=== PATIENT | female | born 1985 | race African-American/Black ===

== ENCOUNTER 2019-06-04 03:41 | Emergency (ER) | payer OTHER ==
[~2019-06-04] VITALS: Ht 160 cm; Wt 59.0 kg
[~2019-06-04 03:41] MED LIST: FLUO10CA25 PO; RISO02 PO
[2019-06-04] MEDS ORDERED: LORAZEPAM 0.5MG TABLET PO ONE (04:15)
[2019-06-04 05:39] LABS: CLARITY URINE CLOUDY (CLEAR); COLOR URINE DARK YELLOW (YELLOW); KETONES URINE TRACE (NEGATIVE); LEUKOCYTE ESTERASE URINE 2+ (NEGATIVE); NITRITE URINE NEGATIVE (NEGATIVE); OCCULT BLOOD URINE 1+ (NEGATIVE); PH URINE 5.5 (4.5-8.0); PROTEIN URINE 2+ (NEGATIVE); SPECIFIC GRAVITY URINE 1.016 (1.005-1.030)
[2019-06-04] MEDS ORDERED: IBUPROFEN 600MG TABLET PO ONE (06:00)
[2019-06-04 06:01] VITALS: BP 139/91
== END 2019-06-04 06:05 | disposition home or self-care (01) ==
LOC: ER 05:30
DX: M79.10 Myalgia, unspecified site (principal); F10.10 Alcohol abuse, uncomplicated; N39.0 Urinary tract infection, site not specified; I25.2 Old myocardial infarction; Z79.899 Other long term (current) drug therapy; Y90.8 Blood alcohol level of 240 mg/100 ml or more
CPT/HCPCS: 36415; 73030; 80320; 81003; 87077; 87086; 87186; 99284; Z7610; G0480

== ENCOUNTER 2019-12-23 15:20 | Emergency (ER) | payer OTHER ==
[~2019-12-23] VITALS: Ht 167.6 cm; Wt 68.5 kg
[2019-12-23 18:55] LABS: BASOPHILS % 1.5 % (0.0-2.0); EOSINOPHILS % 2.2 % (0.0-5.0); HEMATOCRIT. 36.7 % (36.0-48.0); HEMOGLOBIN. 12.4 g/dL (12.0-16.0); LYMPHOCYTES % 35.6 % (20.0-50.0); MEAN CORPUSCULAR HEMOGLOBIN 35.8 pg (28.0-32.0); MEAN CORPUSCULAR VOLUME 106.2 fL (81.0-99.0); MEAN PLATELET VOLUME 7.7 fl (7.4-10.4); MONOCYTES % 7.7 % (2.0-8.0); PLATELET 191 x1000/uL (130-400); RED BLOOD CELL COUNT 3.45 mill/uL (4.2-5.4); RED CELL DISTRIBUTION WIDTH 14.1 % (11.6-14.6)
[2019-12-23 19:00] LABS: CHLORIDE 107 mEq/L (98-107)
[2019-12-23] MEDS ORDERED: LORAZEPAM 2MG/ML CPJ IV ONE (19:00)
[2019-12-23 19:06] LABS: HCG SCREEN NEGATIVE
[2019-12-23 19:11] LABS: ETHANOL BLOOD 293 mg/dL
[2019-12-23 19:11] LABS: *AMPHETAMINES SCREEN URINE NEGATIVE (NEGATIVE); *BARBITURATES SCREEN URINE NEGATIVE (NEGATIVE); *BENZODIAZEPINES SCREEN URINE NEGATIVE (NEGATIVE)
[2019-12-23 19:12] LABS: *COCAINE SCREEN URINE NEGATIVE (NEGATIVE); METHADONE URINE SCREEN NEGATIVE (NEGATIVE); OPIATES URINE SCREEN NEGATIVE (NEGATIVE); PHENCYCLIDINE URINE SCREEN NEGATIVE (NEGATIVE)
[2019-12-23 19:13] LABS: CANNABINOID URINE SCREEN PRESUMTIVE POSITIVE (NEGATIVE)
[2019-12-23] MEDS ORDERED: MORPHINE SULFATE 2 MG/ML CPJ (NOT FOR IM USE) IV ONE (23:30)
[2019-12-24] MEDS ORDERED: IOHEXOL-350 100 ML BOTTLE ONE (00:55)
[2019-12-24 03:09] VITALS: BP 124/81
== END 2019-12-24 03:16 | disposition home or self-care (01) ==
LOC: ER 15:20
DX: N93.9 Abnormal uterine and vaginal bleeding, unspecified (principal); J45.909 Unspecified asthma, uncomplicated; F17.290 Nicotine dependence, other tobacco product, uncomplicated
CPT/HCPCS: 36415; 71045; 71275; 74174; 80053; 80305; 80320; 81025; 83880; 84484; 84703; 85025; 93005; 96374; 99285; J2060; Q9967; G0480

== ENCOUNTER 2020-10-07 17:00 | Emergency (ER) | payer OTHER ==
[~2020-10-07] VITALS: Ht 167.6 cm; Wt 61.0 kg
[2020-10-07 17:45] LABS: BASOPHILS % 1.8 % (0.0-2.0); EOSINOPHILS % 1.4 % (0.0-5.0); HEMOGLOBIN. 13.2 g/dL (12.0-16.0); LYMPHOCYTES % 22.9 % (20.0-50.0); MEAN CORPUSCULAR HEMOGLOBIN 36.6 pg (28.0-32.0); MEAN CORPUSCULAR VOLUME 105.4 fL (81.0-99.0); MEAN PLATELET VOLUME 6.8 fl (7.4-10.4); MONOCYTES % 8.9 % (2.0-8.0); PLATELET 213 x1000/uL (130-400); RED BLOOD CELL COUNT 3.61 mill/uL (4.2-5.4); RED CELL DISTRIBUTION WIDTH 15.7 % (11.6-14.6)
[2020-10-07] MEDS ORDERED: SODIUM CHLORIDE 0.9% 1,000 ML IV ONE ×2 (17:45→21:30)
[2020-10-07 17:52] LABS: CHLORIDE 110 mEq/L (98-107)
[2020-10-07 18:00] LABS: HCG SCREEN NEGATIVE
[2020-10-07 18:27] LABS: ETHANOL BLOOD 375 mg/dL
[2020-10-07] MEDS ORDERED: LORAZEPAM 2MG/ML CPJ IV ONE (18:30)
[2020-10-07] MEDS: LORAZEPAM 1MG TABLET PO ONE ×2 (18:30→18:59)
[2020-10-07] MEDS ORDERED: HALOPERIDOL LACTATE 5MG/ML VIAL IM ONE (19:00)
[2020-10-07 21:21] LABS: CLARITY URINE CLOUDY (CLEAR); COLOR URINE YELLOW (YELLOW); KETONES URINE 1+ (NEGATIVE); LEUKOCYTE ESTERASE URINE TRACE (NEGATIVE); NITRITE URINE NEGATIVE (NEGATIVE); OCCULT BLOOD URINE TRACE (NEGATIVE); PH URINE 5.5 (4.5-8.0); PROTEIN URINE TRACE (NEGATIVE); SPECIFIC GRAVITY URINE 1.015 (1.005-1.030); UROBILINOGEN URINE 0.2 E.U./dL (0.2-1.0)
[2020-10-07 21:52] LABS: *AMPHETAMINES SCREEN URINE NEGATIVE (NEGATIVE); *BARBITURATES SCREEN URINE NEGATIVE (NEGATIVE)
[2020-10-07 21:53] LABS: *BENZODIAZEPINES SCREEN URINE NEGATIVE (NEGATIVE); *COCAINE SCREEN URINE NEGATIVE (NEGATIVE); METHADONE URINE SCREEN NEGATIVE (NEGATIVE); OPIATES URINE SCREEN NEGATIVE (NEGATIVE); PHENCYCLIDINE URINE SCREEN NEGATIVE (NEGATIVE)
[2020-10-07 21:56] LABS: CANNABINOID URINE SCREEN PRESUMTIVE POSITIVE (NEGATIVE)
[2020-10-07] MEDS ORDERED: CEFTRIAXONE 1 G PREMIX 50 ML IV ONE (22:00)
[2020-10-08] MEDS ORDERED: CEFTRIAXONE 1 G PREMIX 50 ML IV SCH (02:30)
[2020-10-09] MEDS ORDERED: NITR100C PO (10:13)
[2020-10-09 11:15] VITALS: BP 156/98
== END 2020-10-09 11:23 | disposition home or self-care (01) ==
LOC: ER 17:00
DX: R45.851 Suicidal ideations (principal); N39.0 Urinary tract infection, site not specified; R45.1 Restlessness and agitation; F10.129 Alcohol abuse with intoxication, unspecified; Y90.8 Blood alcohol level of 240 mg/100 ml or more
CPT/HCPCS: 36415; 80053; 80305; 80307; 80320; 80329; 81003; 81025; 84703; 85025; 87426; 93005; 96361; 96365; 99285; J0696; J1630; J7030; Z7610; G0480

== ENCOUNTER 2022-04-16 12:42 | Emergency (ER) | payer OTHER ==
[~2022-04-16] VITALS: Ht 157.5 cm; Wt 59.0 kg
[~2022-04-16 12:42] MED LIST changes: +NITR100C PO
[2022-04-16 12:51] VITALS: BP 0/0
== END 2022-04-16 15:14 | disposition left against medical advice (07) ==
LOC: ER 12:42
DX: R05.9 Cough, unspecified (principal); Z13.9 Encounter for screening, unspecified
CPT/HCPCS: 99283